=== PATIENT | male | born 1980 | race Hispanic/Latino ===

== ENCOUNTER 2020-07-18 15:27 | Emergency (ER) | payer OTHER ==
[~2020-07-18] VITALS: Ht 177.8 cm; Wt 99.3 kg
[2020-07-18] MEDS ORDERED: NAPROSYN500 MG PO (16:17)
== END 2020-07-18 16:37 | disposition home or self-care (01) ==
LOC: FSED 15:41
DX: S93.401A Sprain of unspecified ligament of right ankle, initial encounter (principal)
CPT/HCPCS: 99283